=== PATIENT | female | born 1980 | race Caucasian/White ===

== ENCOUNTER 2016-11-06 19:25 | Emergency (ER) | payer BC ==
[~2016-11-06] VITALS: Ht 167.6 cm; Wt 72.6 kg
[~2016-11-06 19:25] MED LIST: PREN-92 PO
[2016-11-06 19:27] VITALS: TEMP 98.6; Ht 167.6 cm; Wt 72.6 kg
[2016-11-06] MEDS ORDERED: NO ROUTINE MEDS (19:38)
--- NOTE | 2016-11-06 19:50 | ERPDOC ---
Departure Disposition Decision Date: November 06, 2016 Disposition Decision Time: 20:59 Disposition: 01 DISCHARGED HOME, SELF-CARE Impression Impression Impression: Primary Impression: Fracture of phalanx of toe Encounter type: initial encounter Toe: lesser toe Fracture type: closed Phalanx: proximal Fracture alignment: displaced Laterality: left Qualified Codes: S92.512A - Displaced fracture of proximal phalanx of left lesser toe(s), initial encounter for closed fracture Severity: Moderate Condition: Stable Seen By: Mid-level only Referrals: CLEMENTE GOLDSTEIN MD (Family) Patient Instructions: Toe Fracture (ED) Problems/Meds/Labs Reviewed?: Yes Medications reviewed and manag: Yes Additional Instructions: Continue to dashawn tape your 2nd and 3rd toe together. Wear the post op shoe until you follow up with [facility]. The number for their office is . Please call on Tuesday to schedule an appointment for follow up. Ice and elevate the foot to help with swelling. May use the Long Bottom as needed for pain. Follow up care ordered?: Yes Mental Status: Alert, Oriented HPI General Chief Complaint: Lower Extremity Injury Stated Complaint: LEFT FOOT TOE POSSIBLY BROKEN Time Seen by Provider: 19:30 Source: patient Exam Limitations: no limitations HPI Foot/Ankle Initial Comments She was walking down the stairs at home today and tripped and her left foot struck something. The left 2nd does is noted to be not in alignment with the other toes and is painful. No bruising or swelling noted. Presents to ER today for xray and treatment. Occurred At: home Onset: Rapid Duration: 1 hr Severity: moderate Location: left: 2nd toe Method of Injury: direct blow Associated Symptoms: pain with extension, pain with flexion, DENIES: bruising, numbness, pain with standing, pallor, red streaks, redness, swelling, weakness Allergies: Coded Allergies: No Known Drug Allergies (Verified Allergy, Unknown, 05/31/09) Past History Past Medical History Pt denies signifigant PMH Surgical History Denies Surgeries Family History Family History: Negative Vaccines Hx Influenza Vaccination: No Hx Pneumococcal Vaccination: No Social History Smoking Status: Never smoker Substance Use Type: does not use Alcohol Intake: none Review of Systems Musculoskeletal General: pain (left 2nd toe) Integumentary Skin: DENIES: color change, rash Neurological General: DENIES: numbness, tingling Exam General General Nourishment: well nourished, well developed, appears stated age, no acute distress, adult General Body Habitus: well groomed Vital Signs: RN Vital Signs have been reviewed: Yes, Temperature: 98.6, Source : Oral, Heart Rate: 76, Respiratory Rate: 16, BP: 138/79, Pulse Oximetry: 97 Height (Feet): 5 Height (Inches): 6.00 Fastrak Foot/Ankle Foot/Ankle : Leg: Left Leg: NOT FOUND: atrophy, contusion, deformity, discoloration, edema, numbness, swelling, tender, weakness Ankle: NOT FOUND: achilles tendon insertion, anterior drawer sign, decreased ROM, deformity, ecchymosis, numbness, swelling, tender lat. foot, tender lat. malleolus, tender med. malleolus, tender mid foot, weakness Foot: NOT FOUND: deformity, discoloration, numbness, swelling, tender 1st MTP joint, tender plantar fascia Toes: cap refill <2 sec ea toe, decreased ROM (of 2nd toe due to pain and deformity), deformity (2nd toe left foot), NOT FOUND: ecchymosis, erythema, nail avulsion, subungual hematoma Dorsalis Pedis Pulse: 2+ Neurologic RN Documented GCS Eye Opening: Verbal: Motor: Total: Differential Diagnoses Considering: Contusion, Dislocation, Fracture Progress Results/Orders Orders Procedure Category Date Status Time Toes Left 2 View RAD 11/06/16 Taken Minimum Lidocaine 1% PHA 11/06/16 Complete (Xylocaine 1%) 20:15 Premade Splint EDM 11/06/16 Transmitted 20:46 Toes Left 2 View RAD 11/06/16 Taken Minimum Hydrocodone/Apap PHA 11/06/16 Complete 5/325 Prepack (Long Bottom 5 21:15 Medications Current ED Medications Lidocaine HCl (Xylocaine 1%) 100 mg O ONCE INFIL Last administered on 20:20; Start 11/06/16 at 20:15; Stop 11/06/16 at 20:16; Status DC Acetaminophen/ Hydrocodone Bitart (NORCO 5 (PrePack)) 1 pack O ONCE SENT HOME Last administered on 11/06/16 21:20; Start 11/06/16 at 21:15; Stop 11/06/16 at 21:16; Status DC Progress Progress Left 2nd toe digital block done with 1% Lidocaine using 2ml-single injection technique. Was able to reduce the toe into proper alignment. Post reduction films does shows minimal displacement. Sonny tamez tape the toe to the 3rd digit and place in post op shoe. Did speak with Dr. Larkin and he will see her in follow up. Will have her ice and elevate the foot. Xray Xray : Reason for Exam: toe deformity Xray: Toe(s) L Interpretation: Abnormal (left 2nd distal aspect of the proximal phalanx, fracture with dislocation) GLENN SUTTON APRN November 06, 2016 19:49
--- NOTE | 2016-11-06 19:55 | NUR ---
XRY PORTABLE AT BEDSIDE.
[2016-11-06] MEDS: LIDOCAINE 1% (10mg/ml) 30ml SDV INFIL ONE (20:20)
--- NOTE | 2016-11-06 20:20 | NUR ---
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
--- NOTE | 2016-11-06 20:50 | NUR ---
XRY PORTABLE AT BEDSIDE.
[2016-11-06] MEDS: HYDROCODONE/APAP 5/325 (PrePack) SENT HOME ONE (21:20)
[2016-11-06 21:23] VITALS: BP 127/81; PULSE 79; RESP 16; O2SAT 98
--- NOTE | 2016-11-06 21:23 | NUR ---
DEPART PT DISMISSED AMBULATORY TO LOBBY, WEARING POST OP SHOE.
--- NOTE | 2016-11-07 08:51 | DI ---
Indication: ITS.REASON: post reduction PROCEDURE: TOES LEFT 2 VIEW MINIMUM: Encounter: Initial Comparison: Radiographs from earlier on the same date Findings: Interval closed reduction of the second toe proximal phalangeal fracture with improved alignment. No new acute fracture or dislocation seen. Joint spaces are normal. Impression: Closed reduction of the second toe proximal phalangeal fracture. .
--- NOTE | 2016-11-07 08:52 | DI ---
Indication: ITS.REASON: left toe pain PROCEDURE: TOES LEFT 2 VIEW MINIMUM: Encounter: Initial Comparison: None Findings: Acute mildly displaced and angulated fracture of the second toe proximal phalanx with apex medial angulation. The fracture line extends near and possibly into the PIP joint. No additional acute fracture or dislocation. Joint spaces are normal. Impression: Closed posttraumatic second toe proximal phalangeal fracture. .
== END 2016-11-06 21:23 | disposition home or self-care (01) ==
LOC: ED 19:25
DX: S92.512A Displaced fracture of proximal phalanx of left lesser toe(s), initial encounter for closed fracture (principal); W22.8XXA Striking against or struck by other objects, initial encounter; Y93.01 Activity, walking, marching and hiking; Y92.008 Other place in unspecified non-institutional (private) residence as the place of occurrence of the external cause; Y99.8 Other external cause status